=== PATIENT | male | born 1970 | race African-American/Black ===

== ENCOUNTER 2023-02-21 10:20 | Emergency (ER) | payer MEDICAID ==
[~2023-02-21] VITALS: Ht 167.6 cm; Wt 82.0 kg
[2023-02-21 10:30] VITALS: BP 126/80; TEMP 98.9; O2SAT 100
[2023-02-21 10:36] VITALS: PULSE 84; RESP 16
[2023-02-21] MEDS ORDERED: VALA100044 PO (13:39)
== END 2023-02-21 14:56 | disposition home or self-care (01) ==
LOC: ER 10:20
DX: B00.9 Herpesviral infection, unspecified (principal)
CPT/HCPCS: 99281